=== PATIENT | female | born 1945 | race Caucasian/White ===

== ENCOUNTER → 2020-05-19 09:57 | Outpatient (BNVA) | payer MEDICARE, SELFPAY | PROVIDERS: PCP Internal Medicine; Visit Provider Nurse Practitioner Gerontology | CPT/HCPCS: Q3014 ==

== ENCOUNTER → 2020-11-18 12:57 | Outpatient (BNVA) | payer MEDICARE, SELFPAY | PROVIDERS: PCP Internal Medicine; Visit Provider Nurse Practitioner Gerontology | DX: E11.65 Type 2 diabetes mellitus with hyperglycemia (principal); E78.00 Pure hypercholesterolemia, unspecified; E55.9 Vitamin D deficiency, unspecified; Z79.4 Long term (current) use of insulin; Z87.39 Personal history of other diseases of the musculoskeletal system and connective tissue | CPT/HCPCS: 82947; 99212 ==

== ENCOUNTER 2020-12-13 10:59 | Outpatient (REF) | payer MEDICARE, SELFPAY ==
[2020-12-13 12:21] LABS: Alanine Aminotransferase 33 U/L (0-31); Albumin Level 4.1 g/dL (3.5-5.0); Alkaline Phosphatase 106 U/L (39-117); Anion Gap 17 (12-20); Aspartate Amino Transferase 36 U/L (5-31); Blood Urea Nitrogen 9 mg/dL (9-16); Calcium 9.9 mg/dL (8.4-10.2); Carbon Dioxide 24 mmol/L (22-29); Chloride 103 mmol/L (96-108); Cholesterol 167 mg/dL; Estimated Glomerular Filt Rate 59; Glucose Fasting 150 mg/dL (60-99); HDL Cholesterol 72 mg/dL; LDL Cholesterol Calculated 80 mg/dl; Potassium 4.3 mmol/L (3.3-5.1); Sodium 140 mmol/L (135-145); Total Protein 7.4 g/dL (6.5-8.0); Triglycerides 75 mg/dL
[2020-12-13 12:32] LABS: Microalbum/Creatinine Ratio Ur 9.7 ug/mg cr
[2020-12-13 12:42] LABS: Thyroid Stimulating Hormone 1.92 uIU/mL (0.32-4.0)
[2020-12-13 12:59] LABS: Vitamin D 25-OH Total 37.6 ng/mL (>30)
== END 2020-12-13 11:00 | disposition home or self-care (01) ==
LOC: HO.LAB 10:59
PROVIDERS: PCP Internal Medicine; Visit Provider Nurse Practitioner Gerontology
DX: E11.65 Type 2 diabetes mellitus with hyperglycemia (principal); E55.9 Vitamin D deficiency, unspecified; Z79.4 Long term (current) use of insulin
CPT/HCPCS: 36415; 80053; 80061; 82043; 82306; 84443

== ENCOUNTER → 2021-09-04 09:36 | Outpatient (BNVA) | payer MEDICARE, SELFPAY | PROVIDERS: PCP Internal Medicine; Visit Provider Nurse Practitioner Gerontology | DX: E11.65 Type 2 diabetes mellitus with hyperglycemia (principal); E78.00 Pure hypercholesterolemia, unspecified; Z79.4 Long term (current) use of insulin; Z87.39 Personal history of other diseases of the musculoskeletal system and connective tissue | CPT/HCPCS: 82947; 83036; 99212 ==

== ENCOUNTER 2023-03-20 09:19 | Outpatient (REF) | payer MEDICARE, SELFPAY ==
[2023-03-20 09:46] LABS: MANUAL DIFF FLAG NO
[2023-03-20 10:16] LABS: Basophils Percent Auto 0.4 % (0-2); Eosinophils Absolute Auto 0.2 X10*3/uL (0.0-0.4); Eosinophils Percent Auto 2.2 % (0-4); Hematocrit 43.5 % (37.0-47.0); Hemoglobin 14.6 g/dl (12.0-16.0); Imm Gran Abs Auto 0.01 X10*3/uL (0.00-0.03); Imm Gran Pct Auto 0.1 % (0.0-0.4); Lymphocytes Absolute Auto 3.1 X10*3/uL (1.2-4.9); Lymphocytes Percent Auto 42.5 % (20-40); Mean Corpuscular HGB Conc 33.6 g/dl (31.0-35.0); Mean Corpuscular Hemoglobin 31.1 pg (27.0-33.0); Mean Corpuscular Volume 92.6 fL (80.0-98.0); Mean Platelet Volume 9.6 fL (9.4-12.3); Monocytes Absolute Auto 0.4 X10*3/uL (0.1-1.2); Monocytes Percent Auto 4.7 % (2-11); Neutrophils Absolute Auto 3.7 x10*3/uL (2.0-8.3); Neutrophils Percent Auto 50.1 % (45-73); Platelet Count 244 X10*3/uL (160-400); White Blood Count 7.4 X10*3/uL (4.8-10.8)
[2023-03-20 10:20] LABS: Estimated Average Glucose 209 mg/dL; Hemoglobin A1c % 8.9 % (<6.0)
[2023-03-20 10:54] LABS: Alanine Aminotransferase 41 U/L (0-31); Alkaline Phosphatase 94 U/L (39-117); Anion Gap 16 (12-20); Aspartate Amino Transferase 47 U/L (5-31); Blood Urea Nitrogen 9 mg/dL (9-16); Calcium 10.2 mg/dL (8.4-10.2); Carbon Dioxide 25 mmol/L (22-29); Chloride 105 mmol/L (96-108); Cholesterol 155 mg/dL (<200); Estimated Glomerular Filt Rate > 60; Glucose Fasting 189 mg/dL (60-99); HDL Cholesterol 63 mg/dL (>40); LDL Cholesterol Calculated 74 mg/dL (<100); Potassium 3.7 mmol/L (3.3-5.1); Sodium 142 mmol/L (135-145); Total Protein 7.7 g/dL (6.5-8.0); Triglycerides 90 mg/dL (<150)
[2023-03-20 11:12] LABS: Thyroid Stimulating Hormone 2.63 uIU/mL (0.32-4.0)
[2023-03-20 11:15] LABS: Creatinine Urine 251.12 mg/dL; Microalbum/Creatinine Ratio Ur 22.3 ug/mg cr (<30)
== END 2023-03-20 09:20 | disposition home or self-care (01) ==
LOC: HO.LAB 09:19
PROVIDERS: PCP Internal Medicine; Visit Provider Internal Medicine
DX: E03.9 Hypothyroidism, unspecified (principal); E11.69 Type 2 diabetes mellitus with other specified complication; E66.01 Morbid (severe) obesity due to excess calories; E78.5 Hyperlipidemia, unspecified; E11.9 Type 2 diabetes mellitus without complications; I10 Essential (primary) hypertension; Z13.0 Encounter for screening for diseases of the blood and blood-forming organs and certain disorders involving the immune mechanism
CPT/HCPCS: 36415; 80053; 80061; 82043; 82570; 83036; 84443; 85025

== ENCOUNTER 2023-05-02 09:35 | Outpatient (AMB) | payer MEDICARE, SELFPAY ==
[2023-05-02 09:37] VITALS: BP 144/90; PULSE 93; O2SAT 94; BMI 27.7
--- NOTE | 2023-05-02 09:37 | A.OFFPC_ITS ---
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 Pharmacy Clerk: Not Required per policy Accompanied by: Self / Same As Patient Allergies Doxycycline Hyclate Allergy (Unknown, Verified 05/02/23 09:38) Rash Medication List - Last Reconciled 05/02/23 by Jerel Conley MD acetaminophen ER 500 mg PO Q12H atorvastatin 40 mg PO BEDTIME blood sugar diagnostic (FreeStyle Lite Strips) test blood sugar twice a day blood sugar diagnostic As directed cholecalciferol (vitamin D3) 25 mcg PO DAILY glipizide 5 mg PO BID insulin glargine U-300 conc (Toujeo SoloStar U-300 Insulin) 10 units (0.0333 mL) subcut DAILY ketorolac 0.5% 0 drps ophthalmic (eye) lancets As directed lorazepam 0.5 mg PO BID PRN pen needle, diabetic As directed Tobacco use date assessed: 05/02/23 Fall risk assessment: No Falls in past year Last assessed Fall Risk: 05/02/23 Dental Screening Dental Screen Date: 05/02/23 Did you have a dental visit in the last 12 months?: No Did you have a dental problem in the last 6 months where you did not have access to dental care?: No Was dental information given to patient?: Patient has dentist HPI PE - CMP and Microalbumin due HPI Details DM and hyperlipidemia; BS has been high; A1C 8.4 PFSH Medical History (Updated 05/02/23 @ 10:24 by Jerel Conley MD) Physical exam Hx of cataract Anxiety Hyperlipidemia associated with type 2 diabetes mellitus History of osteoporosis Vitamin D deficiency Type 2 diabetes mellitus with hyperglycemia, with long-term current use of insulin Elevated parathyroid hormone Hyperlipidemia Surgical History History of breast biopsy History of cholecystectomy Family History Father Pancreatic cancer Mother Stomach cancer Brother Alcoholism Son Diabetes Daughter Diabetes Mother Diabetes Social History Housing: House Alcohol intake: current Alcohol intake frequency: a few times a month Patient Tobacco Use Status: Never used Tobacco e-Cigarette/Vaping Use: Never Used Second Hand Smoke Exposure: No service: No Current occupational status: retired Cognitive needs: No Hearing needs: No Vision needs: Yes Questionnaire PHQ-9 Over the last 2 weeks, how often have you been bothered by any of the following problems? 1. Little interest or pleasure in doing things: several days 2. Feeling down, depressed, or hopeless: several days 3. Trouble falling or staying asleep, or sleeping too much: nearly every day 4. Feeling tired or having little energy: several days 5. Poor appetite or overeating: not at all 6. Feeling bad about yourself - or that you are a failure or have let yourself or your family down: several days 7. Trouble concentrating on things, such as reading the newspaper or watching television: not at all 8. Moving or speaking so slowly that other people could have noticed. Or the opposite - being so fidgety or restless that you have been moving around a lot more than usual: not at all 9. Thoughts that you would be better off or of hurting yourself in some way: not at all Total score: 7 Depression Screening Interpretation: Negative Depression Screening Done: Yes 36543 - PHQ-9 Billing: Yes Source: Developed by Drs. Edu Cannon, Radha Walton, Kofi Stanley and colleagues, with an educational george from [employer]. Thrive Questionnaire Date Thrive assessed: 05/02/23 I am a: Patient What is your living situation today?: I have a steady place to live Within the past 12 months, did the food you bought not last and you didn't have the money to get more?: Never true Within the past 12 months, did you worry whether your food would run out before you got money to buy more?: Never true Do you have trouble paying for medicines?: No Do you have trouble getting transportation to medical appointments?: No Do you have trouble paying your heating and electricity bill?: No Do you have trouble taking care of your child, family member or friend?: No Do you have trouble with day-to-day activities such as bathing, preparing meals, shopping, managing finances, etc.?: No Are you currently unemployed and looking for a job?: No Are you interested in more education?: No Please select the resources that you would like help with: None AUDIT C Alcohol Use Questionnaire (AUDIT-C) 1. How often do you have a drink containing alcohol?: Never Total Score: 0 Score Reviewed/Action Taken: Yes LURDES-7 AMB Questionnaire LURDES-7 Date LURDES - 7 assessed: 05/02/23 Feeling nervous, anxious, or on edge: 1 = Several days Not being able to stop or control worryin = Not at all Worrying too much about different things: 0 = Not at all Trouble relaxin = Several days Being so restless that it is hard to sit still: 0 = Not at all Becoming easily annoyed or irritable: 0 = Not at all Feeling afraid as if something awful might happen: 1 = Several days Total LURDES-7 score (0-4 normal; 5-9 mild; 10-14 moderate; 15-21 severe): 3 Source: Developed by Drs. Edu Cannon, Radha Walton, Kofi Stanley and colleagues, with an educational george from [employer]. LURDES-7 Assessment Billing LURDES-7 Assessment Tool: LURDES-7 Assessment 34564 Review of Systems Const Denies chills, Denies fatigue, Denies headache(s) and Denies weight loss Eyes Denies change in vision, Denies diplopia and Denies eye pain ENT Denies vertigo, Denies dizziness, Denies headache(s) and Denies nasal discharge Card Denies chest pain, Denies rapid heart rate and Denies dyspnea on exertion Resp Denies chest congestion, Denies cough, Denies pain with cough and Denies dyspnea on exertion GI Denies abdominal pain, Denies hematochezia and Denies change in bowel habits Musc Denies myalgias, Denies arthralgias and Denies joint swelling Skin/Breast Denies lesions and Denies unusual bruising Neuro Denies vertigo, Denies dizziness, Denies headache(s) and Denies focal weakness Endo Denies fatigue Physical exam (Primary Care) Vital Signs: Last Vital Signs Pulse 93 05/02/23 09:37 BP 144/90 H 05/02/23 09:37 Pulse Ox 94 05/02/23 09:37 Oxygen Delivery Method Room Air 05/02/23 09:37 BMI result Body Mass Index 27.7 Tobacco/Smoking Status: Tobacco use Status Tobacco use date assessed 05/02/23 05/02/23 09:39 Patient Tobacco Use Status Never used Tobacco 05/02/23 09:39 e-Cigarette/Vaping Use Never Used 05/02/23 09:39 PHQ-9: PHQ-9 Score PHQ-9: Total score 7 05/02/23 09:46 Depression Screening Interpretation: Negative Thrive Assessment: Date of Thrive Assessment Date Thrive assessed 05/02/23 05/02/23 09:39 Const General: cooperative, healthy appearing and no acute distress Orientation/consciousness: oriented to person, oriented to place and oriented to time HENMT Head: Yes normal to inspection, Yes normocephalic and Yes atraumatic Mouth: Normal oral and palatal mucosa present and tongue normal Throat: Yes posterior oropharynx normal and Yes uvula midline Eyes General: appearance normal, both eyes and all related structures Neck Neck: Yes normal visual inspection, Yes full ROM and Yes no lymphadenopathy Thyroid: Thyroid normal Carotids: normal carotid upstroke Chest Chest palpation & inspection: normal inspection of the chest Resp Effort & Inspection: normal respiratory effort and able to speak in complete sentences Auscultation: clear to auscultation bilaterally Cardio Jugular venous distension: no JVD Palpation: normal PMI Rate: regular rate Rhythm: regular rhythm Heart sounds: S1 normal heart sound present and S2 normal heart sound present GI Inspection: Yes normal to inspection Palpation (GI): Soft to palpation and No hepatosplenomegaly present Auscultation: normal bowel sounds General: Yes no CVA tenderness Back/Spine/Pelvis Back: no CVA tenderness Skin General skin exam: no rashes or lesions noted Neuro General: oriented to person, oriented to place and oriented to time Extrem General: Yes normal to inspection and Yes full ROM Assessment and Plan Assessment & Plan (1) Physical exam: Code(s): Z00.00 - Encounter for general adult medical examination without abnormal findings Plan: do labs (2) Type 2 diabetes mellitus with hyperglycemia, with long-term current use of insulin: Code(s): E11.65 - Type 2 diabetes mellitus with hyperglycemia; Z79.4 - prison (current) use of insulin Plan: increase rx (3) Hyperlipidemia: Code(s): E78.5 - Hyperlipidemia, unspecified Qualifiers: Hyperlipidemia type: pure hypercholesterolemia Qualified Code(s): E78.00 - Pure hypercholesterolemia, unspecified Plan: stable; same rx Orders: Orders Hemoglobin A1c Today R73.9 - Hyperglycemia, unspecified Microalbumin, Random (w Creat) Today E11.69 - Type 2 diabetes mellitus with other specified complication, E66.01 - Morbid (severe) obesity due to excess calories Lipid Panel Today E78.5 - Hyperlipidemia, unspecified Complete Blood Count Auto Diff Today D64.9 - Anemia, unspecified Comprehensive [place]. Panel Fast Today N28.9 - Disorder of kidney and ureter, unspecified Medications: Changed From insulin glargine U-300 conc (Toujeo SoloStar U-300 Insulin) 10 units (0.0333 mL) subcut DAILY 4.5 mL 8RF E11.65 - Type 2 diabetes mellitus with hyperglycemia, Z79.4 - prison (current) use of insulin To insulin glargine U-300 conc (Toujeo SoloStar U-300 Insulin) 12 units (0.04 mL) subcut DAILY 4.5 mL 8RF E11.65 - Type 2 diabetes mellitus with hyperglycemia, Z79.4 - prison (current) use of insulin Coding Level of Care Code Est Pt Prev Care >65y(62685) Diagnoses Physical exam Z00.00 Type 2 diabetes mellitus with hyperglycemia, with long-term current use of insulin E11.65; Z79.4 Pure hypercholesterolemia E78.00 Hyperlipidemia type: pure hypercholesterolemia Additional Codes LURDES-7 Assessment Billing - LURDES-7 Assessment Tool: LURDES-7 Assessment 29138 ([id number])
== END 2023-05-02 10:12 | disposition home or self-care (01) ==
PROVIDERS: Visit Provider Internal Medicine
DX: Z00.00 Encounter for general adult medical examination without abnormal findings (principal); E11.65 Type 2 diabetes mellitus with hyperglycemia; Z79.4 Long term (current) use of insulin; E78.00 Pure hypercholesterolemia, unspecified
CPT/HCPCS: 99397

== ENCOUNTER 2023-12-06 09:49 | Outpatient (AMB) | payer MEDICARE, SELFPAY ==
--- NOTE | 2023-12-06 09:56 | MHC.PC.OV ---
Vital Signs 12/06/23 09:59 Height 5 ft 0.5 in Weight 141 lb BMI 27.1 Blood Pressure Location Lt brachial Position Sitting Pulse Source Pulse Oximeter Oxygen Delivery Method Room Air Intake Visit Reasons: [place] [facility] RT cataract 12/23 Intake Note: Patient is here for a Pre-op for cataracts of [facility] right eye scheduled with Dr. Vu on 12/24/23. 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 Accompanied by: Self / Same As Patient Allergies Doxycycline Hyclate Allergy (Unknown, Verified 12/06/23 10:08) Rash Tobacco use date assessed: 12/06/23 Fall risk assessment: No Falls in past year Last assessed Fall Risk: 12/06/23 Dental Screening Dental Screen Date: 12/06/23 Did you have a dental visit in the last 12 months?: Yes Did you have a dental problem in the last 6 months where you did not have access to dental care?: No Was dental information given to patient?: Patient has dentist HPI [place] [facility] RT cataract 12/23 HPI Details having cataracts repaired; hyperlipidemia and diabetes; stable; no history of CAD [facility] Medical History (Updated 12/09/23 @ 12:47 by Jerel Conley MD) Physical exam Hx of cataract Anxiety Hyperlipidemia associated with type 2 diabetes mellitus History of osteoporosis Vitamin D deficiency Type 2 diabetes mellitus with hyperglycemia, with long-term current use of insulin Elevated parathyroid hormone Hyperlipidemia Surgical History History of breast biopsy History of cholecystectomy Family History Father Pancreatic cancer Mother Stomach cancer Brother Alcoholism Son Diabetes Daughter Diabetes Mother Diabetes Social History Housing: House Alcohol intake: current Alcohol intake frequency: a few times a month Patient Tobacco Use Status: Never used Tobacco e-Cigarette/Vaping Use: Never Used Second Hand Smoke Exposure: No service: No Current occupational status: retired Cognitive needs: No Hearing needs: No Vision needs: Yes Questionnaire PHQ-9 Over the last 2 weeks, how often have you been bothered by any of the following problems? 1. Little interest or pleasure in doing things: not at all 2. Feeling down, depressed, or hopeless: not at all 3. Trouble falling or staying asleep, or sleeping too much: not at all 4. Feeling tired or having little energy: not at all 5. Poor appetite or overeating: not at all 6. Feeling bad about yourself - or that you are a failure or have let yourself or your family down: not at all 7. Trouble concentrating on things, such as reading the newspaper or watching television: not at all 8. Moving or speaking so slowly that other people could have noticed. Or the opposite - being so fidgety or restless that you have been moving around a lot more than usual: not at all 9. Thoughts that you would be better off or of hurting yourself in some way: not at all Total score: 0 Depression Screening Interpretation: Negative Depression Screening Done: Yes 99382 - PHQ-9 Billing: Yes Source: Developed by Drs. Edu Cannon, Radha Walton, Kofi Stanley and colleagues, with an educational george from [employer]. Thrive Questionnaire Date Thrive assessed: 12/06/23 I am a: Patient What is your living situation today?: I have a steady place to live Within the past 12 months, did the food you bought not last and you didn't have the money to get more?: Never true Within the past 12 months, did you worry whether your food would run out before you got money to buy more?: Never true Do you have trouble paying for medicines?: No Do you have trouble getting transportation to medical appointments?: No Do you have trouble paying your heating and electricity bill?: No Do you have trouble taking care of your child, family member or friend?: No Do you have trouble with day-to-day activities such as bathing, preparing meals, shopping, managing finances, etc.?: No Are you currently unemployed and looking for a job?: No Are you interested in more education?: No Please select the resources that you would like help with: None Currently or been in a relationship where the following occur: No concerns reported THRIVE Score: 0 AUDIT C Alcohol Use Questionnaire (AUDIT-C) 1. How often do you have a drink containing alcohol?: Never 3. How often do you have six or more drinks on one occasion?: Never Total Score: 0 Score Reviewed/Action Taken: Yes LURDES-7 AMB Questionnaire LURDES-7 Date LURDES - 7 assessed: 12/06/23 Feeling nervous, anxious, or on edge: 0 = Not at all Not being able to stop or control worryin = Not at all Worrying too much about different things: 0 = Not at all Trouble relaxin = Not at all Being so restless that it is hard to sit still: 0 = Not at all Becoming easily annoyed or irritable: 0 = Not at all Feeling afraid as if something awful might happen: 0 = Not at all Total LURDES-7 score (0-4 normal; 5-9 mild; 10-14 moderate; 15-21 severe): 0 Source: Developed by Drs. Edu Cannon, Radha Walton, Kofi Stanley and colleagues, with an educational george from [employer]. LURDES-7 Assessment Billing LURDES-7 Assessment Tool: LURDES-7 Assessment 90490 Review of Systems Const Denies chills, Denies fatigue, Denies headache(s) and Denies weight loss Eyes Denies change in vision, Denies diplopia and Denies eye pain ENT Denies vertigo, Denies dizziness, Denies headache(s) and Denies nasal discharge Card Denies chest pain, Denies rapid heart rate and Denies dyspnea on exertion Resp Denies chest congestion, Denies cough, Denies pain with cough and Denies dyspnea on exertion GI Denies abdominal pain, Denies hematochezia and Denies change in bowel habits Musc Denies myalgias, Denies arthralgias and Denies joint swelling Skin/Breast Denies lesions and Denies unusual bruising Neuro Denies vertigo, Denies dizziness, Denies headache(s) and Denies focal weakness Endo Denies fatigue Physical exam (Primary Care) Vital Signs: Oxygen Delivery Method Room Air 12/06/23 09:59 BMI result Body Mass Index 27.1 Tobacco/Smoking Status: Tobacco use Status Tobacco use date assessed 12/06/23 12/06/23 10:07 Patient Tobacco Use Status Never used Tobacco 12/06/23 09:57 e-Cigarette/Vaping Use Never Used 12/06/23 09:57 PHQ-9: PHQ-9 Score PHQ-9: Total score 0 12/06/23 10:08 Depression Screening Interpretation: Negative Thrive Assessment: Date of Thrive Assessment Date Thrive assessed 12/06/23 12/06/23 10:07 Currently or been in a relationship where the following occur: No concerns reported Const General: cooperative, healthy appearing and no acute distress Orientation/consciousness: oriented to person, oriented to place and oriented to time HENMT Head: Yes normal to inspection, Yes normocephalic and Yes atraumatic Mouth: Normal oral and palatal mucosa present and tongue normal Throat: Yes posterior oropharynx normal and Yes uvula midline Eyes General: appearance normal, both eyes and all related structures Neck Neck: Yes normal visual inspection, Yes full ROM and Yes no lymphadenopathy Thyroid: Thyroid normal Carotids: normal carotid upstroke Chest Chest palpation & inspection: normal inspection of the chest Resp Effort & Inspection: normal respiratory effort and able to speak in complete sentences Auscultation: clear to auscultation bilaterally Cardio Jugular venous distension: no JVD Palpation: normal PMI Rate: regular rate Rhythm: regular rhythm Heart sounds: S1 normal heart sound present and S2 normal heart sound present GI Inspection: Yes normal to inspection Palpation (GI): Soft to palpation and No hepatosplenomegaly present Auscultation: normal bowel sounds General: Yes no CVA tenderness Back/Spine/Pelvis Back: no CVA tenderness Skin General skin exam: no rashes or lesions noted Neuro General: oriented to person, oriented to place and oriented to time Extrem General: Yes normal to inspection and Yes full ROM Results AMB Hemoglobin A1c AMB Hemoglobin A1c 8.8 % Last Edit by ZANDRA Saeed on 12/06/23 10:08 Results Reviewed Results Reviewed: Laboratory Last Values Hgb A1c (Clinic) 8.8 % (4.0-6.0) H 12/06/23 09:52 Assessment and Plan Assessment & Plan (1) Preop exam for internal medicine: Code(s): Z01.818 - Encounter for other preprocedural examination Plan: Low risk of cardiovascular complications; cleared for surgery (2) Hyperlipidemia associated with type 2 diabetes mellitus: Code(s): E11.69 - Type 2 diabetes mellitus with other specified complication; E78.5 - Hyperlipidemia, unspecified Plan: stable; same rx (3) Hyperlipidemia: Code(s): E78.5 - Hyperlipidemia, unspecified Plan: stable; same rx Orders: Orders AMB Hemoglobin A1c 12/06/23 E11.65 - Type 2 diabetes mellitus with hyperglycemia, Z79.4 - termite renewal inspector (current) use of insulin Coding Level of Care Code Est Pt Level 4 (20744) Diagnoses Preop exam for internal medicine Z01.818 Hyperlipidemia associated with type 2 diabetes mellitus E11.69; E78.5 Hyperlipidemia E78.5 Additional Codes LURDES-7 Assessment Billing - LURDES-7 Assessment Tool: LURDES-7 Assessment [id number] ([id number])
[2023-12-06 09:59] VITALS: BMI 27.1
== END 2023-12-06 10:20 | disposition home or self-care (01) ==
PROVIDERS: PCP Internal Medicine; Visit Provider Internal Medicine
DX: E11.65 Type 2 diabetes mellitus with hyperglycemia (principal); Z79.4 Long term (current) use of insulin
CPT/HCPCS: 83036; 99214

== ENCOUNTER 2024-04-27 09:21 | Outpatient (REF) | payer MEDICARE, SELFPAY ==
[2024-04-27 09:45] LABS: MANUAL DIFF FLAG NO
[2024-04-27 10:47] LABS: Basophils Absolute Auto 0.1 X10*3/uL (0.0-0.2); Basophils Percent Auto 0.8 % (0-2); Eosinophils Absolute Auto 0.4 X10*3/uL (0.0-0.4); Eosinophils Percent Auto 4.6 % (0-4); Hematocrit 46.3 % (37.0-47.0); Hemoglobin 15.1 g/dl (12.0-16.0); Imm Gran Abs Auto 0.02 X10*3/uL (0.00-0.03); Imm Gran Pct Auto 0.3 % (0.0-0.4); Lymphocytes Absolute Auto 3.9 X10*3/uL (1.2-4.9); Lymphocytes Percent Auto 48.4 % (20-40); Mean Corpuscular HGB Conc 32.6 g/dl (31.0-35.0); Mean Corpuscular Hemoglobin 31.3 pg (27.0-33.0); Mean Corpuscular Volume 96.1 fL (80.0-98.0); Mean Platelet Volume 9.8 fL (9.4-12.3); Monocytes Absolute Auto 0.4 X10*3/uL (0.1-1.2); Neutrophils Absolute Auto 3.3 x10*3/uL (2.0-8.3); Neutrophils Percent Auto 40.9 % (45-73); Platelet Count 267 X10*3/uL (160-400); Red Blood Count 4.82 X10*6/uL (4.20-5.50); Red Cell Distribution Width 12.7 % (11.0-16.0)
[2024-04-27 11:10] LABS: Estimated Average Glucose 189 mg/dL; Hemoglobin A1C 256.5148 umol/L; Hemoglobin A1c % 8.2 % (<6.0); Total Hemoglobin (HGBA1C) 3855.6558 umol/L
[2024-04-27 11:40] LABS: Alanine Aminotransferase 23 U/L (0-31); Albumin Level 4.1 g/dL (3.5-5.0); Alkaline Phosphatase 86 U/L (39-117); Anion Gap 14 (12-20); Aspartate Amino Transferase 31 U/L (5-31); Bilirubin Total 0.8 mg/dL (0.0-1.0); Blood Urea Nitrogen 7 mg/dL (9-16); Calcium 10.3 mg/dL (8.4-10.2); Carbon Dioxide 29 mmol/L (22-29); Chloride 105 mmol/L (96-108); Cholesterol 160 mg/dL (<200); Estimated Glomerular Filt Rate 60; Glucose Fasting 126 mg/dL (60-99); HDL Cholesterol 69 mg/dL (>40); LDL Cholesterol Calculated 68 mg/dL (<100); Potassium 4.4 mmol/L (3.3-5.1); Sodium 144 mmol/L (135-145); Total Protein 7.6 g/dL (6.5-8.0); Triglycerides 116 mg/dL (<150)
[2024-04-27 11:56] LABS: Creatinine Urine 211.49 mg/dL; Microalbum/Creatinine Ratio Ur 13.7 ug/mg cr (<30)
== END 2024-04-27 09:22 | disposition home or self-care (01) ==
LOC: HO.LAB 09:21
PROVIDERS: PCP Internal Medicine; Visit Provider Internal Medicine
DX: E11.69 Type 2 diabetes mellitus with other specified complication (principal); E66.01 Morbid (severe) obesity due to excess calories; E78.5 Hyperlipidemia, unspecified; N28.9 Disorder of kidney and ureter, unspecified; D64.9 Anemia, unspecified
CPT/HCPCS: 36415; 80053; 80061; 82043; 82570; 83036; 85025

== ENCOUNTER 2024-05-12 10:57 | Outpatient (AMB) | payer MEDICARE, SELFPAY ==
[2024-05-12 11:03] VITALS: BP 132/78; PULSE 92; O2SAT 95; BMI 26.9
--- NOTE | 2024-05-12 11:03 | MHC.PC.OV ---
Vital Signs 05/12/24 11:03 Height 5 ft 0.5 in Weight 140 lb BMI 26.9 BP 132/78 Blood Pressure Location Lt brachial Position Sitting Pulse 92 Pulse Source Pulse Oximeter Pulse Oximetry (%) 95 Oxygen Delivery Method Room Air Intake Visit Reasons: annual exam Shirt Marker Required: No Accompanied by: Self / Same As Patient Allergies Doxycycline Hyclate Allergy (Unknown, Verified 05/12/24 11:03) Rash Medication List - Last Reconciled 05/12/24 by Jerel Conley MD acetaminophen ER 500 mg PO Q12H atorvastatin 40 mg PO BEDTIME blood sugar diagnostic (FreeStyle Lite Strips) test blood sugar twice a day blood sugar diagnostic As directed cholecalciferol (vitamin D3) 25 mcg PO DAILY glipizide 5 mg PO BID insulin glargine U-300 conc (Toujeo SoloStar U-300 Insulin) 12 units (0.04 mL) subcut DAILY ketorolac 0.5% 0 drps ophthalmic (eye) lancets As directed lorazepam 0.5 mg PO BID PRN pen needle, diabetic As directed Tobacco use date assessed: 05/12/24 Fall risk assessment: No Falls in past year Last assessed Fall Risk: 05/12/24 Dental Screening Dental Screen Date: 12/06/23 HPI annual exam HPI Details diabetes and hyperlipidemia; doing well; dietary indiscretion over the holidays [facility] Medical History (Updated 12/09/23 @ 12:47 by Jerel Conley MD) Physical exam Hx of cataract Anxiety Hyperlipidemia associated with type 2 diabetes mellitus History of osteoporosis Vitamin D deficiency Type 2 diabetes mellitus with hyperglycemia, with long-term current use of insulin Elevated parathyroid hormone Hyperlipidemia Surgical History History of breast biopsy History of cholecystectomy Family History Father Pancreatic cancer Mother Stomach cancer Brother Alcoholism Son Diabetes Daughter Diabetes Mother Diabetes Social History Housing: House Alcohol intake: current Alcohol intake frequency: a few times a month Patient Tobacco Use Status: Never used Tobacco Tobacco use type: Cigarette e-Cigarette/Vaping Use: Never Used Second Hand Smoke Exposure: No service: No Current occupational status: retired Cognitive needs: No Hearing needs: No Vision needs: Yes Questionnaire PHQ-9 Over the last 2 weeks, how often have you been bothered by any of the following problems? 1. Little interest or pleasure in doing things: not at all 2. Feeling down, depressed, or hopeless: several days 3. Trouble falling or staying asleep, or sleeping too much: more than half the days 4. Feeling tired or having little energy: more than half the days 5. Poor appetite or overeating: more than half the days 6. Feeling bad about yourself - or that you are a failure or have let yourself or your family down: more than half the days 7. Trouble concentrating on things, such as reading the newspaper or watching television: more than half the days 8. Moving or speaking so slowly that other people could have noticed. Or the opposite - being so fidgety or restless that you have been moving around a lot more than usual: more than half the days 9. Thoughts that you would be better off or of hurting yourself in some way: more than half the days Total score: 15 Depression Screening Interpretation: Negative Depression Screening Done: Yes 50248 - PHQ-9 Billing: Yes Source: Developed by Drs. Edu Cannon, Radha Walton, Kofi Stanley and colleagues, with an educational george from [employer]. Thrive Questionnaire Date Thrive assessed: 05/12/24 I am a: Patient What is your living situation today?: I have a steady place to live Within the past 12 months, did the food you bought not last and you didn't have the money to get more?: Never true Within the past 12 months, did you worry whether your food would run out before you got money to buy more?: Never true Do you have trouble paying for medicines?: I choose not to answer this question Do you have trouble getting transportation to medical appointments?: I choose not to answer this question Do you have trouble paying your heating and electricity bill?: I choose not to answer this question Do you have trouble taking care of your child, family member or friend?: I choose not to answer this question Do you have trouble with day-to-day activities such as bathing, preparing meals, shopping, managing finances, etc.?: I choose not to answer this question Are you currently unemployed and looking for a job?: I choose not to answer this question Are you interested in more education?: No Please select the resources that you would like help with: None Currently or been in a relationship where the following occur: I choose not to answer THRIVE Score: 0 AUDIT C Alcohol Use Questionnaire (AUDIT-C) 1. How often do you have a drink containing alcohol?: Never Total Score: 0 LURDES-7 AMB Questionnaire LURDES-7 Date LURDES - 7 assessed: 05/12/24 Feeling nervous, anxious, or on edge: 0 = Not at all Not being able to stop or control worryin = Not at all Worrying too much about different things: 0 = Not at all Trouble relaxin = More than half the days Being so restless that it is hard to sit still: 2 = More than half the days Becoming easily annoyed or irritable: 2 = More than half the days Feeling afraid as if something awful might happen: 2 = More than half the days Total LURDES-7 score (0-4 normal; 5-9 mild; 10-14 moderate; 15-21 severe): 8 Source: Developed by Drs. Edu Cannon, Radha Walton, Kofi Stanley and colleagues, with an educational george from [employer]. LURDES-7 Assessment Billing LURDES-7 Assessment Tool: LURDES-7 Assessment 18983 Review of Systems Const Denies chills, Denies fatigue, Denies headache(s) and Denies weight loss Eyes Denies change in vision, Denies diplopia and Denies eye pain ENT Denies vertigo, Denies dizziness, Denies headache(s) and Denies nasal discharge Card Denies chest pain, Denies rapid heart rate and Denies dyspnea on exertion Resp Denies chest congestion, Denies cough, Denies pain with cough and Denies dyspnea on exertion GI Denies abdominal pain, Denies hematochezia and Denies change in bowel habits Musc Denies myalgias, Denies arthralgias and Denies joint swelling Skin/Breast Denies lesions and Denies unusual bruising Neuro Denies vertigo, Denies dizziness, Denies headache(s) and Denies focal weakness Endo Denies fatigue Physical exam (Primary Care) Vital Signs: Last Vital Signs Pulse 92 05/12/24 11:03 BP 132/78 05/12/24 11:03 Pulse Ox 95 05/12/24 11:03 Oxygen Delivery Method Room Air 05/12/24 11:03 BMI result Body Mass Index 26.9 Tobacco/Smoking Status: Tobacco use Status Tobacco use date assessed 05/12/24 05/12/24 11:07 Patient Tobacco Use Status Never used Tobacco 05/12/24 11:07 Tobacco use type Cigarette 05/12/24 11:07 e-Cigarette/Vaping Use Never Used 05/12/24 11:07 PHQ-9: PHQ-9 Score PHQ-9: Total score 15 05/12/24 11:07 Depression Screening Interpretation: Negative Thrive Assessment: Date of Thrive Assessment Date Thrive assessed 05/12/24 05/12/24 11:07 Currently or been in a relationship where the following occur: I choose not to answer Const General: cooperative, healthy appearing and no acute distress Orientation/consciousness: oriented to person, oriented to place and oriented to time HENMT Head: Yes normal to inspection, Yes normocephalic and Yes atraumatic Mouth: Normal oral and palatal mucosa present and tongue normal Throat: Yes posterior oropharynx normal and Yes uvula midline Eyes General: appearance normal, both eyes and all related structures Neck Neck: Yes normal visual inspection, Yes full ROM and Yes no lymphadenopathy Thyroid: Thyroid normal Carotids: normal carotid upstroke Chest Chest palpation & inspection: normal inspection of the chest Resp Effort & Inspection: normal respiratory effort and able to speak in complete sentences Auscultation: clear to auscultation bilaterally Cardio Jugular venous distension: no JVD Palpation: normal PMI Rate: regular rate Rhythm: regular rhythm Heart sounds: S1 normal heart sound present and S2 normal heart sound present GI Inspection: Yes normal to inspection Palpation (GI): Soft to palpation and No hepatosplenomegaly present Auscultation: normal bowel sounds General: Yes no CVA tenderness Back/Spine/Pelvis Back: no CVA tenderness Skin General skin exam: no rashes or lesions noted Neuro General: oriented to person, oriented to place and oriented to time Extrem General: Yes normal to inspection and Yes full ROM Coding Level of Care Code Est Pt Prev Care >65y(90598) Diagnoses Physical exam Z00.00 Hyperlipidemia E78.5 Type 2 diabetes mellitus with hyperglycemia, with long-term current use of insulin E11.65; Z79.4 Additional Codes PHQ-9 - 38186 - PHQ-9 Billing: Yes ([id number]) LURDES-7 Assessment Billing - LURDES-7 Assessment Tool: LURDES-7 Assessment 30530 ([id number]) Assessment & Plan Assessment & Plan (1) Physical exam: Code(s): Z00.00 - Encounter for general adult medical examination without abnormal findings Category: Medical Plan: stable; do labs (2) Hyperlipidemia: Code(s): E78.5 - Hyperlipidemia, unspecified Category: Medical Plan: stable; same rx (3) Type 2 diabetes mellitus with hyperglycemia, with long-term current use of insulin: Code(s): E11.65 - Type 2 diabetes mellitus with hyperglycemia; Z79.4 - manager intermediate (current) use of insulin Category: Medical Plan: stable; same rx Orders: Orders Complete Blood Count Auto Diff Today Z13.0 - Encounter for screening for diseases of the blood and blood-forming organs and certain disorders involving the immune mechanism Comprehensive [place]. Panel Fast Today Z13.9 - Encounter for screening, unspecified Thyroid Stimulating Hormone Today Z13.29 - Encounter for screening for other suspected endocrine disorder Lipid Panel Today Z13.220 - Encounter for screening for lipoid disorders Hemoglobin A1c Today R73.9 - Hyperglycemia, unspecified
== END 2024-05-12 11:22 | disposition home or self-care (01) ==
PROVIDERS: PCP Internal Medicine; Visit Provider Internal Medicine
DX: Z00.00 Encounter for general adult medical examination without abnormal findings (principal); E78.5 Hyperlipidemia, unspecified; E11.65 Type 2 diabetes mellitus with hyperglycemia; Z79.4 Long term (current) use of insulin

== ENCOUNTER → 2024-05-12 10:57 | Outpatient (BNVA) | payer MEDICARE, SELFPAY | PROVIDERS: PCP Internal Medicine; Visit Provider Internal Medicine | DX: Z00.00 Encounter for general adult medical examination without abnormal findings (principal); E11.65 Type 2 diabetes mellitus with hyperglycemia; E78.5 Hyperlipidemia, unspecified; Z79.4 Long term (current) use of insulin | CPT/HCPCS: 96127; 99397 ==

== ENCOUNTER 2024-08-04 08:52 | Outpatient (REF) | payer MEDICARE, SELFPAY ==
[2024-08-04 09:15] LABS: MANUAL DIFF FLAG NO
[2024-08-04 09:42] LABS: Basophils Percent Auto 0.4 % (0-2); Eosinophils Absolute Auto 0.2 X10*3/uL (0.0-0.4); Eosinophils Percent Auto 2.5 % (0-4); Hematocrit 43.4 % (37.0-47.0); Hemoglobin 14.2 g/dl (12.0-16.0); Imm Gran Abs Auto 0.03 X10*3/uL (0.00-0.03); Imm Gran Pct Auto 0.3 % (0.0-0.4); Lymphocytes Absolute Auto 4.2 X10*3/uL (1.2-4.9); Mean Corpuscular HGB Conc 32.7 g/dl (31.0-35.0); Mean Corpuscular Hemoglobin 30.8 pg (27.0-33.0); Mean Corpuscular Volume 94.1 fL (80.0-98.0); Mean Platelet Volume 9.5 fL (9.4-12.3); Monocytes Absolute Auto 0.5 X10*3/uL (0.1-1.2); Monocytes Percent Auto 5.2 % (2-11); Neutrophils Absolute Auto 4.4 x10*3/uL (2.0-8.3); Neutrophils Percent Auto 46.6 % (45-73); Platelet Count 231 X10*3/uL (160-400); Red Blood Count 4.61 X10*6/uL (4.20-5.50); Red Cell Distribution Width 12.5 % (11.0-16.0); White Blood Count 9.4 X10*3/uL (4.8-10.8)
[2024-08-04 09:49] LABS: Estimated Average Glucose 183 mg/dL
[2024-08-04 10:25] LABS: Alanine Aminotransferase 18 U/L (0-31); Albumin Level 3.9 g/dL (3.5-5.0); Alkaline Phosphatase 80 U/L (39-117); Anion Gap 11 (12-20); Aspartate Amino Transferase 27 U/L (5-31); Bilirubin Total 1.1 mg/dL (0.0-1.0); Blood Urea Nitrogen 9 mg/dL (9-16); Calcium 9.8 mg/dL (8.4-10.2); Carbon Dioxide 27 mmol/L (22-29); Chloride 108 mmol/L (96-108); Cholesterol 150 mg/dL (<200); Estimated Glomerular Filt Rate > 60; Glucose Fasting 162 mg/dL (60-99); HDL Cholesterol 67 mg/dL (>40); LDL Cholesterol Calculated 61 mg/dL (<100); Potassium 3.9 mmol/L (3.3-5.1); Sodium 142 mmol/L (135-145); Total Protein 7.7 g/dL (6.5-8.0); Triglycerides 110 mg/dL (<150)
[2024-08-04 10:41] LABS: Thyroid Stimulating Hormone 3.72 uIU/mL (0.32-4.0)
== END 2024-08-04 08:53 | disposition home or self-care (01) ==
LOC: HO.LAB 08:52
PROVIDERS: PCP Internal Medicine; Visit Provider Internal Medicine
DX: Z13.0 Encounter for screening for diseases of the blood and blood-forming organs and certain disorders involving the immune mechanism (principal); Z13.220 Encounter for screening for lipoid disorders; Z13.29 Encounter for screening for other suspected endocrine disorder; R73.9 Hyperglycemia, unspecified; Z13.6 Encounter for screening for cardiovascular disorders
CPT/HCPCS: 36415; 80053; 80061; 83036; 84443; 85025

== ENCOUNTER 2024-08-10 10:52 | Outpatient (AMB) | payer MEDICARE, SELFPAY ==
[2024-08-10 10:55] VITALS: BP 158/90; PULSE 87; O2SAT 96; BMI 27.3
--- NOTE | 2024-08-10 10:55 | A.OFFPC_ITS ---
Vital Signs 08/10/24 10:55 Height 5 ft 0.5 in Weight 142 lb BMI 27.3 BP 158/90 H Blood Pressure Location Lt brachial Position Sitting Pulse 87 Pulse Source Pulse Oximeter Pulse Oximetry (%) 96 Oxygen Delivery Method Room Air Intake Visit Reasons: 3mth f/u - see comments Allergies Doxycycline Hyclate Allergy (Unknown, Verified 08/10/24 10:56) Rash Medication List - Last Reconciled 08/10/24 by Jerel Conley MD acetaminophen ER 500 mg PO Q12H atorvastatin 40 mg PO BEDTIME blood sugar diagnostic As directed blood sugar diagnostic (FreeStyle Lite Strips) test blood sugar twice a day cholecalciferol (vitamin D3) 25 mcg PO DAILY glipizide 5 mg PO BID insulin glargine U-300 conc (Toujeo SoloStar U-300 Insulin) 12 units (0.04 mL) subcut DAILY ketorolac 0.5% 0 drps ophthalmic (eye) lancets As directed lorazepam 0.5 mg PO BID PRN pen needle, diabetic As directed Tobacco use date assessed: 08/10/24 Fall risk assessment: No Falls in past year Last assessed Fall Risk: 08/10/24 Dental Screening Dental Screen Date: 08/10/24 Did you have a dental visit in the last 12 months?: No Did you have a dental problem in the last 6 months where you did not have access to dental care?: No Was dental information given to patient?: Patient has dentist HPI 3mth f/u - see comments HPI Details DM and hyperlipidemia on rx; doing well; compliant [facility] Medical History (Updated 12/09/23 @ 12:47 by Jerel Conley MD) Physical exam Hx of cataract Anxiety Hyperlipidemia associated with type 2 diabetes mellitus History of osteoporosis Vitamin D deficiency Type 2 diabetes mellitus with hyperglycemia, with long-term current use of insulin Elevated parathyroid hormone Hyperlipidemia Surgical History History of breast biopsy History of cholecystectomy Family History Father Pancreatic cancer Mother Stomach cancer Brother Alcoholism Son Diabetes Daughter Diabetes Mother Diabetes Social History Housing: House Alcohol intake: current Alcohol intake frequency: a few times a month Patient Tobacco Use Status: Never used Tobacco Tobacco use type: Cigarette e-Cigarette/Vaping Use: Never Used Second Hand Smoke Exposure: No service: No Current occupational status: retired Cognitive needs: No Hearing needs: No Vision needs: Yes Questionnaire PHQ-9 Over the last 2 weeks, how often have you been bothered by any of the following problems? 1. Little interest or pleasure in doing things: not at all 2. Feeling down, depressed, or hopeless: several days 3. Trouble falling or staying asleep, or sleeping too much: more than half the days 4. Feeling tired or having little energy: more than half the days 5. Poor appetite or overeating: more than half the days 6. Feeling bad about yourself - or that you are a failure or have let yourself or your family down: more than half the days 7. Trouble concentrating on things, such as reading the newspaper or watching television: more than half the days 8. Moving or speaking so slowly that other people could have noticed. Or the op posite - being so fidgety or restless that you have been moving around a lot more than usual: more than half the days 9. Thoughts that you would be better off or of hurting yourself in some way: more than half the days Total score: 15 Depression Screening Interpretation: Negative Depression Screening Done: Yes 88615 - PHQ-9 Billing: Yes Source: Developed by Drs. Edu Cannon, Radha Walton, Kofi Stanley and colleagues, with an educational george from [employer]. Thrive Questionnaire Date Thrive assessed: 08/10/24 I am a: Patient What is your living situation today?: I have a steady place to live Within the past 12 months, did the food you bought not last and you didn't have the money to get more?: Never true Within the past 12 months, did you worry whether your food would run out before you got money to buy more?: Never true Do you have trouble paying for medicines?: I choose not to answer this question Do you have trouble getting transportation to medical appointments?: I choose not to answer this question Do you have trouble paying your heating and electricity bill?: I choose not to answer this question Do you have trouble taking care of your child, family member or friend?: I choose not to answer this question Do you have trouble with day-to-day activities such as bathing, preparing meals, shopping, managing finances, etc.?: I choose not to answer this question Are you currently unemployed and looking for a job?: I choose not to answer this question Are you interested in more education?: No Please select the resources that you would like help with: None Currently or been in a relationship where the following occur: I choose not to answer THRIVE Score: 0 AUDIT C Alcohol Use Questionnaire (AUDIT-C) 1. How often do you have a drink containing alcohol?: Never Total Score: 0 LURDES-7 AMB Questionnaire LURDES-7 Date LURDES - 7 assessed: 08/10/24 Feeling nervous, anxious, or on edge: 0 = Not at all Not being able to stop or control worryin = Not at all Worrying too much about different things: 0 = Not at all Trouble relaxin = More than half the days Being so restless that it is hard to sit still: 2 = More than half the days Becoming easily annoyed or irritable: 2 = More than half the days Feeling afraid as if something awful might happen: 2 = More than half the days Total LURDES-7 score (0-4 normal; 5-9 mild; 10-14 moderate; 15-21 severe): 8 Source: Developed by Drs. Edu Cannon, Radha Walton, Kofi Stanley and colleagues, with an educational george from [employer]. LURDES-7 Assessment Billing LURDES-7 Assessment Tool: LURDES-7 Assessment 56421 Review of Systems Const Denies chills, Denies headache(s) and Denies weight loss ENT Denies headache(s) Card Denies chest pain, Denies syncope, Denies irregular heart rhythm and Denies dyspnea Resp Denies chest congestion, Denies cough and Denies dyspnea GI Denies abdominal pain, Denies change in stool character, Denies nausea and Denies vomiting Musc Denies deformity and Denies joint swelling Neuro Denies syncope and Denies headache(s) Physical exam (Primary Care) Vital Signs: Last Vital Signs Pulse 87 08/10/24 10:55 BP 158/90 H 08/10/24 10:55 Pulse Ox 96 08/10/24 10:55 Oxygen Delivery Method Room Air 08/10/24 10:55 BMI result Body Mass Index 27.3 Tobacco/Smoking Status: Tobacco use Status Tobacco use date assessed 08/10/24 08/10/24 11:01 Patient Tobacco Use Status Never used Tobacco 08/10/24 11:01 Tobacco use type Cigarette 08/10/24 11:01 e-Cigarette/Vaping Use Never Used 08/10/24 11:01 PHQ-9: PHQ-9 Score PHQ-9: Total score 15 08/10/24 11:01 Depression Screening Interpretation: Negative Thrive Assessment: Date of Thrive Assessment Date Thrive assessed 08/10/24 08/10/24 11:01 Currently or been in a relationship where the following occur: I choose not to answer Const General: cooperative, comfortable, no acute distress and alert Neck Neck: Yes no lymphadenopathy Thyroid: Thyroid normal Resp Effort & Inspection: normal respiratory effort Auscultation: clear to auscultation bilaterally Percussion: percussion normal Cardio Jugular venous distension: no JVD Palpation: normal PMI Rate: regular rate Rhythm: regular rhythm Heart sounds: S1 normal heart sound present and S2 normal heart sound present GI Inspection: Yes normal to inspection Palpation (GI): No hepatosplenomegaly present Skin General skin exam: no rashes or lesions noted Extrem General: Yes no clubbing, cyanosis or edema Coding Level of Care Code Est Pt Level 3 (85207) Diagnoses Hyperlipidemia associated with type 2 diabetes mellitus E11.69; E78.5 Additional Codes LURDES-7 Assessment Billing - LURDES-7 Assessment Tool: LURDES-7 Assessment 40992 ([id number]) PHQ-9 - 05966 - PHQ-9 Billing: Yes ([id number]) Assessment & Plan Assessment & Plan (1) Hyperlipidemia associated with type 2 diabetes mellitus: Code(s): E11.69 - Type 2 diabetes mellitus with other specified complication; E78.5 - Hyperlipidemia, unspecified Category: Medical Plan: stable; same rx
== END 2024-08-10 11:12 | disposition home or self-care (01) ==
PROVIDERS: PCP Internal Medicine; Visit Provider Internal Medicine
DX: E11.69 Type 2 diabetes mellitus with other specified complication (principal); E78.5 Hyperlipidemia, unspecified

== ENCOUNTER → 2024-08-10 10:52 | Outpatient (BNVA) | payer MEDICARE, SELFPAY | PROVIDERS: PCP Internal Medicine; Visit Provider Internal Medicine | DX: E11.69 Type 2 diabetes mellitus with other specified complication (principal); E78.5 Hyperlipidemia, unspecified | CPT/HCPCS: 96127; 99212 ==

== ENCOUNTER 2024-10-12 13:15 | Outpatient (AMB) | payer MEDICARE, SELFPAY ==
--- NOTE | 2024-10-12 13:57 | AM.OFFWIN_ITS ---
Intake Vital Signs 10/12/24 14:04 Weight 143 lb 2 oz BP 130/80 Blood Pressure Location Lt brachial Position Sitting Pulse 99 Pulse Source Pulse Oximeter Temp 97.6 F Temp Source Oral Pulse Oximetry (%) 96 Oxygen Delivery Method Room Air Intake Visit Reasons: EP cough, congestion 10 days recently on meds Intake Note: Patient here for cough and congestion that has been present for 10 days. She states she recently went to urgent care and was put on 5 different meds. Patient Tobacco Use Status: Never used Tobacco Allergies Doxycycline Hyclate Allergy (Unknown, Verified 10/12/24 14:09) Rash HPI HPI Comments History of Present Illness Details History - The patient is an 79-year-old female w ith past med hx of asthma, T2DM and HLD presenting with difficulty breathing and a persistent cough and fatigue. - She reports that her symptoms began al most two weeks ago and have progressively worsened, impacting her quality of life. - Despite using prescribed asthma medica tions, including nebulizer treatments and an albuterol inhaler, the patient experiences ongoing severe shortness of breath and wheezing. - Prior treatments included on 10/01, she was prescribed (by another urgent care) a course of steroids (prednisone 20mg x5d) and antibiotics (Z-Олег), tesselon pearles, albuterol nebs and albuterol inhaler reported as mostly ineffective, leading to the current evaluation. She has been using the nebs once daily. - She experiences aggravated sinus conge stion and coughing and reports past allergies that might contribute to her upper respiratory symptoms. - Denies fever but describes severity dominguez fficient to request further evaluation for possible serious respiratory illness. - Reports sinus pain and some head conge stion but denies ear pain. Physical Exam General: Cooperative, healthy appearing, comfortable and no acute distress Orientation/consciousness: Patient oriented x3 Limitations: No limitations Head: Normal to inspection Ears: Hearing grossly normal bilaterally, external ears normal and TM's normal bilaterally Nose: Normal external nose present, Normal nares present and No nasal discharge present Face and sinus: Normal facial exam and Yes sinuses nontender Mouth: Normal oral and palatal mucosa present and moist mucous membranes Throat: Yes tonsils normal, Yes uvula midline. Posterior oropharynx erythema Eyes: Appearance normal, both eyes and all related structures Neck: Normal visual inspection Respiratory: slight exp wheeze, rhonchi noted. Normal respiratory effort, able to speak in complete sentences, Actively coughing, no respiratory distress, not tachypneic, no tripod positioning and no use of accessory muscles. Cardiovascular: Regular rate and rhythm. Normal S1 and S2 Skin: No rashes or lesions noted Neuro: Patient oriented x3 Extremities: Normal to inspection and Yes no clubbing, cyanosis or edema PFSH Medical History (Updated 10/12/24 @ 14:28 by Nora Valladares PA-C) Physical exam Hx of cataract Anxiety Hyperlipidemia associated with type 2 diabetes mellitus History of osteoporosis Vitamin D deficiency Type 2 diabetes mellitus with hyperglycemia, with long-term current use of insulin Elevated parathyroid hormone Hyperlipidemia Surgical History History of breast biopsy History of cholecystectomy Family History Father Pancreatic cancer Mother Stomach cancer Brother Alcoholism Son Diabetes Daughter Diabetes Mother Diabetes Social History Housing: House Alcohol intake: current Alcohol intake frequency: a few times a month Patient Tobacco Use Status: Never used Tobacco Tobacco use type: Cigarette e-Cigarette/Vaping Use: Never Used Second Hand Smoke Exposure: No service: No Current occupational status: retired Cognitive needs: No Hearing needs: No Vision needs: Yes Review of Systems Const All systems reviewed & are unremarkable except as noted in HPI and below Physical Exam Vital Signs: Last Vital Signs Temp 97.6 F 10/12/24 14:04 Pulse 101 H 10/12/24 14:04 BP 130/80 10/12/24 14:04 Pulse Ox 96 10/12/24 14:04 Oxygen Delivery Method Room Air 10/12/24 14:04 Assessment & Plan Assessment & Plan (1) Lower respiratory infection (e.g., bronchitis, pneumonia, pneumonitis, pulmonitis): Code(s): J22 - Unspecified acute lower respiratory infection Plan: VSS, pt well appearing and PE remarkable for concerning lung sounds. Our management plan includes continued close monitoring of the patient's uncontrolled asthma symptoms with advised use of albuterol inhaler and nebulizer every four to six hours. We are investigating for a viral upper respiratory infection through a viral swab, as some viral infections may last several weeks and can be more severe. Further evaluation includes a chest x-ray to check for signs of pneumonia. The Solumedrol Dosepak will be provided to potentially re duce inflammation, recommending doses be taken in the morning to minimize sleep disturbances. Additionally, we will closely observe for any signs that may require antibiotic substitution to Augmentin if bacterial pneumonia is confirmed via imaging. Ongoing care will include adjusting medication usage as needed based on symptoms, close monitoring, and follow-up on test results to adapt the treatment plan as required. The patient has been informed on all steps and required actions. Patient was informed and verbally consented to the use of an ambient scribe for clinic note documentation during this visit Orders: Orders Resp Pathogen Panel - [facility] Today J06.9 - Acute upper respiratory infection, unspecified XR chest 2V Today R05.9 - Cough, unspecified Medications: New methylprednisolone orally per package directions; PO PER PKG DIR for 6 days 21 ea 0RF Coding Level of Care Code Est Pt Level 4 (25443) Diagnoses Lower respiratory infection (e.g., bronchitis, pneumonia, pneumonitis, pulmonitis) J22
[2024-10-12 14:04] VITALS: BP 130/80; PULSE 99; TEMP 36.4; O2SAT 96
== END 2024-10-12 14:32 | disposition home or self-care (01) ==
PROVIDERS: PCP Internal Medicine; Visit Provider Physician Assistant
DX: J22 Unspecified acute lower respiratory infection (principal)

== ENCOUNTER 2024-10-12 13:15 | Outpatient (REF) | payer MEDICARE, SELFPAY ==
--- NOTE | ~2024-10-12 | XR_ITS ---
EXAMINATION: XR CHEST CLINICAL INFORMATION: R05.9 - Cough, unspecified COMPARISON: None available. TECHNIQUE: 2 views of the chest were obtained. FINDINGS: Pulmonary reticular pattern. No consolidation, pleural effusion or pneumothorax. Elevated right hemidiaphragm which could be positional and or secondary to S-shaped curvature of the thoracolumbar spine. Cardiomediastinal silhouette size is normal. Osteopenia versus osteoporosis. Degenerative changes in the glenohumeral joints, right greater than the left side. Vascular clips right upper quadrant abdomen. XR/XR chest 2V IMPRESSION: Chronic interstitial lung disease. Rotoscoliosis, thoracolumbar spine with a levoconvex morphology. Degenerative changes, right and the left shoulder. Electronically signed by: Everton Yap MD 10/12/2024 02:45 PM EDT
[2024-10-13 08:53] LABS: Adenovirus PCR Not Detected (Not Detect.); Bordetella parapertussis PCR Not Detected (Not Detect.); Bordetella pertussis PCR Not Detected (Not Detect.); Chlamydia pneumoniae PCR Not Detected (Not Detect.); Coronavirus 229E PCR Not Detected (Not Detect.); Coronavirus HKU1 PCR Not Detected (Not Detect.); Coronavirus NL63 PCR Not Detected (Not Detect.); Coronavirus OC43 PCR Not Detected (Not Detect.); Human metapneumovirus PCR Not Detected (Not Detect.); Influenza A PCR Not Detected (Not Detect.); Influenza B PCR Not Detected (Not Detect.); Mycoplasma pneumoniae PCR Not Detected (Not Detect.); Parainfluenza 1 PCR Not Detected (Not Detect.); Parainfluenza 2 PCR Not Detected (Not Detect.); Parainfluenza 3 PCR Not Detected (Not Detect.); Parainfluenza 4 PCR Not Detected (Not Detect.); RSV PCR Not Detected (Not Detect.); Rhino/Enterovirus PCR Not Detected (Not Detect.)
[2024-10-13 08:57] LABS: Influenza A H1 PCR Not Detected (Not Detect.); Influenza A H1-2009 PCR Not Detected (Not Detect.); Influenza A H3 PCR Not Detected (Not Detect.); SARS-CoV-2 PCR Not Detected (Not Detect.)
== END 2024-10-12 13:16 | disposition home or self-care (01) ==
LOC: HO.HMGCX 13:15
PROVIDERS: PCP Internal Medicine; Visit Provider Physician Assistant
DX: R05.9 Cough, unspecified (principal); J06.9 Acute upper respiratory infection, unspecified
CPT/HCPCS: 71046; 87633; 99212

== ENCOUNTER → 2024-10-12 14:32 | Outpatient (BNV) | payer MEDICARE, SELFPAY | PROVIDERS: PCP Internal Medicine; Visit Provider Radiology Diagnostic Radiology | DX: J84.9 Interstitial pulmonary disease, unspecified (principal) | CPT/HCPCS: 71046 ==

== ENCOUNTER 2024-12-14 12:17 | Outpatient (AMB) | payer MEDICARE, SELFPAY ==
[2024-12-14 12:43] VITALS: BP 126/84; PULSE 96; O2SAT 96; BMI 26.9
--- NOTE | 2024-12-14 12:43 | MHC.PC.OV ---
Vital Signs 12/14/24 12:43 Height 5 ft 0.5 in Weight 140 lb BMI 26.9 BP 126/84 Blood Pressure Location Lt brachial Position Sitting Pulse 96 Pulse Source Pulse Oximeter Pulse Oximetry (%) 96 Oxygen Delivery Method Room Air Intake Visit Reasons: ANTONIA DUARTE- YAHAIRA see comments Rent Control Office Manager Required: No Accompanied by: Self / Same As Patient Allergies Doxycycline Hyclate Allergy (Unknown, Verified 12/14/24 12:51) Rash Medication List - Last Reconciled 12/14/24 by Gabrielle Goss MD acetaminophen ER 500 mg PO Q12H amoxicillin-pot clavulanate 875-125 mg 1 tab PO Q12H atorvastatin 40 mg PO BEDTIME azithromycin 250 mg PO DIRECTED benzonatate 200 mg PO BID-TID blood sugar diagnostic As directed blood sugar diagnostic (FreeStyle Lite Strips) test blood sugar twice a day cholecalciferol (vitamin D3) 25 mcg PO DAILY glipizide 5 mg PO BID insulin glargine U-300 conc (Toujeo SoloStar U-300 Insulin) 12 units (0.04 mL) subcut DAILY ketorolac 0.5% 0 drps ophthalmic (eye) lancets As directed lorazepam 0.5 mg PO BID PRN methylprednisolone orally per package directions; PO PER PKG DIR for 6 days pen needle, diabetic As directed prednisone 20 mg PO BID Tobacco use date assessed: 12/14/24 Fall risk assessment: No Falls in past year Last assessed Fall Risk: 12/14/24 Dental Screening Dental Screen Date: 12/14/24 Did you have a dental visit in the last 12 months?: Yes Did you have a dental problem in the last 6 months where you did not have access to dental care?: No Was dental information given to patient?: Patient has dentist HPI HPI Comments History of Present Illness Details The patient is an 79-year-old female presenting for a physical exam and management of chronic conditions. Complains of suprapubic pain and polyuria that started few days ago. Urinalysis was done showing UTI and urine will be sent for culture. The patient has a history of diabetes mellitus, currently managed with atorvastatin, glipizide, and insulin (Togeo). Her hemoglobin A1c was noted to be elevated at 9.3%, prompting consideration for an increase in insulin dosage from 14 to 16 units. She reports a history of diabetic retinopathy, specifically affecting the right eye, and has undergone cataract surgery on both eyes. The patient has a history of hypertension, managed with atorvastatin. She experiences anxiety and depression, for which she uses lorazepam as needed. She has suffered significant personal losses, including the deaths of her , son, grandson, and sister, contributing to her depressive symptoms. The patient has a longstanding heart murmur and scoliosis, neither of which have been previously evaluated with an echocardiogram. She declines having an echocardiogram. She has a history of osteoporosis, previously treated with medication, but discontinued due to dental concerns. She refused to do a DEXA scan. Her surgical history includes gallbladder removal and a right breast biopsy. Family history is significant for cancer, with her father having of pancreatic cancer and her mother of stomach cancer. Preventative care discussions included the need for pneumonia and tetanus vaccinations, as well as her regular flu vaccination. She refused tetanus and pneumonia vaccine. [facility] Medical History (Updated 12/14/24 @ 13:39 by Gabrielle Goss MD) Physical exam Hx of cataract Anxiety Hyperlipidemia associated with type 2 diabetes mellitus History of osteoporosis Vitamin D deficiency Type 2 diabetes mellitus with hyperglycemia, with long-term current use of insulin Elevated parathyroid hormone Hyperlipidemia Surgical History History of breast biopsy History of cholecystectomy Family History Father Pancreatic cancer Mother Stomach cancer Brother Alcoholism Son Diabetes Daughter Diabetes Mother Diabetes Social History Housing: House Alcohol intake: current Alcohol intake frequency: a few times a month Patient Tobacco Use Status: Never used Tobacco Tobacco use type: Cigarette e-Cigarette/Vaping Use: Never Used Second Hand Smoke Exposure: No service: No Current occupational status: retired Cognitive needs: No Hearing needs: No Vision needs: Yes Questionnaire PHQ-9 Over the last 2 weeks, how often have you been bothered by any of the following problems? 1. Little interest or pleasure in doing things: not at all 2. Feeling down, depressed, or hopeless: several days 3. Trouble falling or staying asleep, or sleeping too much: more than half the days 4. Feeling tired or having little energy: more than half the days 5. Poor appetite or overeating: more than half the days 6. Feeling bad about yourself - or that you are a failure or have let yourself or your family down: more than half the days 7. Trouble concentrating on things, such as reading the newspaper or watching television: more than half the days 8. Moving or speaking so slowly that other people could have noticed. Or the opposite - being so fidgety or restless that you have been moving around a lot more than usual: more than half the days 9. Thoughts that you would be better off or of hurting yourself in some way: more than half the days Total score: 15 Depression Screening Interpretation: Positive (no suicidal thoughts) Depression Screening Follow-up: Existing condition, Follow-up Visit Requested and Declines treatment Depression Screening Done: Yes 63101 - PHQ-9 Billing: Yes Source: Developed by Drs. Edu Cannon, Radha Walton, Kofi Stanley and colleagues, with an educational george from [employer]. Thrive Questionnaire Date Thrive assessed: 12/14/24 I am a: Patient What is your living situation today?: I have a steady place to live Within the past 12 months, did the food you bought not last and you didn't have the money to get more?: Never true Within the past 12 months, did you worry whether your food would run out before you got money to buy more?: Never true Do you have trouble paying for medicines?: I choose not to answer this question Do you have trouble getting transportation to medical appointments?: I choose not to answer this question Do you have trouble paying your heating and electricity bill?: I choose not to answer this question Do you have trouble taking care of your child, family member or friend?: I choose not to answer this question Do you have trouble with day-to-day activities such as bathing, preparing meals, shopping, managing finances, etc.?: I choose not to answer this question Are you currently unemployed and looking for a job?: I choose not to answer this question Are you interested in more education?: No Please select the resources that you would like help with: None Currently or been in a relationship where the following occur: I choose not to answer THRIVE Score: 0 AUDIT C Alcohol Use Questionnaire (AUDIT-C) 1. How often do you have a drink containing alcohol?: Never 3. How often do you have six or more drinks on one occasion?: Never Total Score: 0 Score Reviewed/Action Taken: No LURDES-7 AMB Questionnaire LURDES-7 Date LURDES - 7 assessed: 12/14/24 Feeling nervous, anxious, or on edge: 0 = Not at all Not being able to stop or control worryin = Not at all Worrying too much about different things: 0 = Not at all Trouble relaxin = More than half the days Being so restless that it is hard to sit still: 2 = More than half the days Becoming easily annoyed or irritable: 2 = More than half the days Feeling afraid as if something awful might happen: 2 = More than half the days Total LURDES-7 score (0-4 normal; 5-9 mild; 10-14 moderate; 15-21 severe): 8 Source: Developed by Drs. Edu Cannon, Radha Walton, Kofi Stanley and colleagues, with an educational george from [employer]. LURDES-7 Assessment Billing LURDES-7 Assessment Tool: LURDES-7 Assessment 99183 Review of Systems Const All systems reviewed & are unremarkable except as noted in HPI and below Card Denies chest pain at rest, Denies chest pain with activity, Denies edema, Denies irregular heart rhythm, Denies claudication, Denies dyspnea, Denies dyspnea on exertion, Denies orthopnea, Denies paroxysmal nocturnal dyspnea and Denies slow heart rate Resp Denies cough, Denies dyspnea and Denies dyspnea on exertion GI Denies abdominal pain, Denies change in bowel habits, Denies excessive flatus, Denies nausea and Denies vomiting Denies urinary incontinence, Denies urinary hesitancy and Denies urinary urgency Musc Denies abnormal gait, Denies atrophy, Denies deformity and Denies limited range of motion Skin/Breast Denies bleeding lesions, Denies changing lesions and Denies rash Neuro Denies abnormal gait and Denies lack of coordination Physical exam (Primary Care) Vital Signs: Last Vital Signs Pulse 96 12/14/24 12:43 BP 126/84 12/14/24 12:43 Pulse Ox 96 12/14/24 12:43 Oxygen Delivery Method Room Air 12/14/24 12:43 BMI result Body Mass Index 26.9 Tobacco/Smoking Status: Tobacco use Status Tobacco use date assessed 12/14/24 12/14/24 12:45 Patient Tobacco Use Status Never used Tobacco 12/14/24 12:45 Tobacco use type Cigarette 12/14/24 12:45 e-Cigarette/Vaping Use Never Used 12/14/24 12:45 PHQ-9: PHQ-9 Score PHQ-9: Total score 15 12/14/24 13:03 Depression Screening Interpretation: Positive (no suicidal thoughts) Depression Screening Follow-up: Existing condition, Follow-up Visit Requested and Declines treatment Thrive Assessment: Date of Thrive Assessment Date Thrive assessed 12/14/24 12/14/24 12:45 Currently or been in a relationship where the following occur: I choose not to answer Resp Effort & Inspection: normal respiratory effort Auscultation: clear to auscultation bilaterally Cardio Jugular venous distension: no JVD Rate: regular rate Rhythm: regular rhythm Heart sounds: Murmur heart sound present systolic Extrem General: Yes full ROM Results AMB Hemoglobin A1c AMB Hemoglobin A1c 9.3 % Last Edit by Paul Santos [facility] on 12/14/24 13:02 AMB Urinalysis, Automated UA Leukoctes 1 Andrea/uL Last Edit by Paul Santos [facility] on 12/14/24 13:23 UA Nitrite Negative Last Edit by Paul Santos [facility] on 12/14/24 13:23 UA Urobilinogen 0 mg/dL Last Edit by Paul Santos [facility] on 12/14/24 13:23 UA Protein 0 mg/dL Last Edit by Paul Santos [facility] on 12/14/24 13:23 UA pH 6.0 Last Edit by Paul Santos [facility] on 12/14/24 13:23 UA Blood 1 Yehuda/uL Last Edit by Paul Santos [facility] on 12/14/24 13:23 UA Specific [place] 1.025 Last Edit by Paul Santos [facility] on 12/14/24 13:23 UA Ketone Negative Last Edit by Paul Santos [facility] on 12/14/24 13:23 UA Bilirubin 0 mg/dL Last Edit by Paul Santos [facility] on 12/14/24 13:23 UA Glucose 0 mg/dL Last Edit by VÍCTOR Rod on 12/14/24 13:23 Results Reviewed Results Reviewed: Laboratory Last Values Hgb A1c (Clinic) 9.3 % (4.0-6.0) H 12/14/24 13:02 Coding Level of Care Code Est Pt Level 4 (00206) Est Pt Prev Care >65y(99941) Diagnoses Physical exam Z00.00 Type 2 diabetes mellitus with hyperglycemia, with long-term current use of insulin E11.65; Z79.4 Diabetic retinopathy E11.319 Macular edema H35.81 Moderate recurrent major depression F33.1 Hyperlipidemia associated with type 2 diabetes mellitus E11.69; E78.5 UTI (urinary tract infection) N39.0 Additional Codes LURDES-7 Assessment Billing - LURDES-7 Assessment Tool: LURDES-7 Assessment 73947 ([id number]) PHQ-9 - 58384 - PHQ-9 Billing: Yes ([id number]) Time Spent (min) 36 Assessment & Plan Assessment & Plan (1) Physical exam: Code(s): Z00.00 - Encounter for general adult medical examination without abnormal findings Category: Medical (2) Type 2 diabetes mellitus with hyperglycemia, with long-term current use of insulin: Code(s): E11.65 - Type 2 diabetes mellitus with hyperglycemia; Z79.4 - buttermaker continuous churn (current) use of insulin Category: Medical (3) Diabetic retinopathy: Code(s): E11.319 - Type 2 diabetes mellitus with unspecified diabetic retinopathy without macular edema Category: Medical (4) Macular edema: Code(s): H35.81 - Retinal edema Category: Medical (5) Moderate recurrent major depression: Code(s): F33.1 - Major depressive disorder, recurrent, moderate Category: Medical (6) Hyperlipidemia associated with type 2 diabetes mellitus: Code(s): E11.69 - Type 2 diabetes mellitus with other specified complication; E78.5 - Hyperlipidemia, unspecified Category: Medical (7) UTI (urinary tract infection): Code(s): N39.0 - Urinary tract infection, site not specified Category: Medical Plan The patient's diabetes management will be adjusted by increasing the insulin dosage from 14 to 16 units due to the elevated hemoglobin A1c of 9.3%. For her heart murmur, an echocardiogram is recommended to assess the severity and underlying cause, given the absence of prior imaging. Preventative care measures include discussions about receiving the pneumonia and tetanus vaccines, as well as ensuring regular flu vaccinations. The patient is advised to continue using lorazepam as needed for anxiety and depression, with consideration for counseling if symptoms persist. A urinalysis is planned to investigate symptoms of dysuria and urinary frequency, with treatment to follow based on results. Patient was informed and verbally consented to the use of an ambient scribe for clinic note documentation during this visit. Orders: Orders AMB Hemoglobin A1c Today E78.5 - Hyperlipidemia, unspecified Lipid Panel 4 Months E78.5 - Hyperlipidemia, unspecified Vitamin D 25-OH Total 4 Months E55.9 - Vitamin D deficiency, unspecified Comprehensive [place]. Panel Fast 4 Months E11.69 - Type 2 diabetes mellitus with other specified complication, E78.5 - Hyperlipidemia, unspecified Urine Culture Today N39.0 - Urinary tract infection, site not specified Microalbumin, Random (w Creat) 4 Months R80.9 - Proteinuria, unspecified AMB Urinalysis Automated Today N39.0 - Urinary tract infection, site not specified Medications: New nitrofurantoin macrocrystal must administer with a meal/food 100 mg PO BID 10 caps 0RF 5 days Changed From insulin glargine U-300 conc (Toujeo SoloStar U-300 Insulin) 12 units (0.04 mL) subcut DAILY 4.5 mL 8RF E11.65 - Type 2 diabetes mellitus with hyperglycemia, Z79.4 - buttermaker continuous churn (current) use of insulin To insulin glargine U-300 conc (Toujeo SoloStar U-300 Insulin) 16 units (0.0533 mL) subcut DAILY 4.797 mL 3RF 90 days E11.65 - Type 2 diabetes mellitus with hyperglycemia, Z79.4 - FDC (current) use of insulin
== END 2024-12-14 13:17 | disposition home or self-care (01) ==
LOC: HO.HMCH 12:18
PROVIDERS: PCP Internal Medicine; Visit Provider Internal Medicine
DX: Z00.00 Encounter for general adult medical examination without abnormal findings (principal); E11.65 Type 2 diabetes mellitus with hyperglycemia; Z79.4 Long term (current) use of insulin; E11.319 Type 2 diabetes mellitus with unspecified diabetic retinopathy without macular edema; F33.1 Major depressive disorder, recurrent, moderate; E11.69 Type 2 diabetes mellitus with other specified complication; H35.81 Retinal edema; E78.5 Hyperlipidemia, unspecified; N39.0 Urinary tract infection, site not specified

== ENCOUNTER 2024-12-14 12:17 | Outpatient (REF) | payer MEDICARE, SELFPAY | END 2024-12-14 12:18 | disposition home or self-care (01) | LOC: HO.LAB 12:17 | PROVIDERS: PCP Internal Medicine; Visit Provider Internal Medicine | DX: Z00.00 Encounter for general adult medical examination without abnormal findings (principal); E11.65 Type 2 diabetes mellitus with hyperglycemia; E11.319 Type 2 diabetes mellitus with unspecified diabetic retinopathy without macular edema; H35.81 Retinal edema; F33.1 Major depressive disorder, recurrent, moderate; E11.69 Type 2 diabetes mellitus with other specified complication; E78.5 Hyperlipidemia, unspecified; N39.0 Urinary tract infection, site not specified; Z79.4 Long term (current) use of insulin | CPT/HCPCS: 81003; 83036; 87086; 87088; 87186; 96127; 99212; 99397 ==

== ENCOUNTER 2025-04-19 08:49 | Outpatient (REF) | payer MEDICARE, SELFPAY ==
[2025-04-19 10:18] LABS: Alanine Aminotransferase 32 U/L (0-31); Albumin Level 4.3 g/dL (3.5-5.0); Alkaline Phosphatase 83 U/L (39-117); Anion Gap 11 (12-20); Aspartate Amino Transferase 42 U/L (5-31); Blood Urea Nitrogen 9 mg/dL (9-16); Calcium 9.8 mg/dL (8.4-10.2); Carbon Dioxide 28 mmol/L (22-29); Chloride 109 mmol/L (96-108); Cholesterol 155 mg/dL (<200); Estimated Glomerular Filt Rate > 60; HDL Cholesterol 71 mg/dL (>40); Potassium 3.5 mmol/L (3.3-5.1); Sodium 144 mmol/L (135-145); Total Protein 7.6 g/dL (6.5-8.0); Triglycerides 94 mg/dL (<150)
[2025-04-19 11:11] LABS: Microalbum/Creatinine Ratio Ur 8.8 ug/mg cr (<30)
== END 2025-04-19 08:50 | disposition home or self-care (01) ==
LOC: HO.LAB 08:49
PROVIDERS: PCP Internal Medicine; Visit Provider Internal Medicine
DX: E11.69 Type 2 diabetes mellitus with other specified complication (principal); E55.9 Vitamin D deficiency, unspecified; E78.5 Hyperlipidemia, unspecified; R80.9 Proteinuria, unspecified
CPT/HCPCS: 36415; 80053; 80061; 82043; 82306; 82570

== ENCOUNTER 2025-04-26 10:40 | Outpatient (AMB) | payer MEDICARE, SELFPAY ==
--- NOTE | 2025-04-26 10:46 | A.OFFPC_ITS ---
Vital Signs 04/26/25 10:47 Height 5 ft 0.5 in Weight 141 lb 6 oz BMI 27.2 BP 176/82 H Blood Pressure Location Lt brachial Position Sitting Respiration 18 Pulse 82 Pulse Source Pulse Oximeter Temp Source Temporal Artery Scan Pulse Oximetry (%) 98 Oxygen Delivery Method Room Air Intake Visit Reasons: dm Kindergarten Instructional Assistant Required: No Accompanied by: Self / Same As Patient Allergies Doxycycline Hyclate Allergy (Unknown, Verified 04/26/25 11:08) Rash Medication List - Last Reconciled 04/26/25 by Gabrielle Goss MD acetaminophen ER 500 mg PO Q12H atorvastatin 40 mg PO BEDTIME blood sugar diagnostic As directed blood sugar diagnostic (FreeStyle Lite Strips) test blood sugar twice a day cholecalciferol (vitamin D3) 25 mcg PO DAILY glipizide 5 mg PO BID insulin glargine U-300 conc (Toujeo SoloStar U-300 Insulin) 16 units (0.0533 mL) subcut DAILY 90 days lancets As directed lorazepam 0.5 mg PO BID PRN pen needle, diabetic As directed Tobacco use date assessed: 04/26/25 Fall risk assessment: No Falls in past year Last assessed Fall Risk: 04/26/25 Dental Screening Dental Screen Date: 04/26/25 Did you have a dental visit in the last 12 months?: No Did you have a dental problem in the last 6 months where you did not have access to dental care?: No Was dental information given to patient?: No HPI HPI Comments History of Present Illness Details The patient is an 79 year old individual presenting for follow-up of chronic conditions and evaluation of new respiratory symptoms. The blood pressure was elevated today, which the patient attributes to rushing. The patient has a history of type 2 diabetes mellitus for quite a while, managed with glipizide and Toujeo 16 units daily. The hemoglobin A1c has improved to 8.4% from a previous value of 9.3%, and a recent fasting blood glucose was 91 mg/dL, down from 162 mg/dL. Recent labs showed good kidney function. For hypercholesterolemia, the patient takes atorvastatin 40 mg, and recent cholesterol levels were noted to be excellent. There is a history of very mildly elevated liver enzymes, which may be related to the atorvastatin. The patient reports a recent onset of a productive, full cough and a sensation of head fullness, raising concern for an upper respiratory infection. The patient denies fever or sinus pain. [facility] Medical History Physical exam Hx of cataract Anxiety Hyperlipidemia associated with type 2 diabetes mellitus History of osteoporosis Vitamin D deficiency Type 2 diabetes mellitus with hyperglycemia, with long-term current use of insulin Elevated parathyroid hormone Hyperlipidemia Surgical History History of breast biopsy History of cholecystectomy Family History Father Pancreatic cancer Mother Stomach cancer Brother Alcoholism Son Diabetes Daughter Diabetes Mother Diabetes Social History Housing: House Alcohol intake: current Alcohol intake frequency: a few times a month Patient Tobacco Use Status: Never used Tobacco Tobacco use type: Cigarette e-Cigarette/Vaping Use: Never Used Second Hand Smoke Exposure: No service: No Current occupational status: retired Cognitive needs: No Hearing needs: No Vision needs: Yes Questionnaire Thrive Questionnaire Date Thrive assessed: 05/12/24 I am a: Patient What is your living situation today?: I have a steady place to live Within the past 12 months, did the food you bought not last and you didn't have the money to get more?: Never true Within the past 12 months, did you worry whether your food would run out before you got money to buy more?: Never true Do you have trouble paying for medicines?: I choose not to answer this question Do you have trouble getting transportation to medical appointments?: I choose not to answer this question Do you have trouble paying your heating and electricity bill?: I choose not to answer this question Do you have trouble taking care of your child, family member or friend?: I choose not to answer this question Do you have trouble with day-to-day activities such as bathing, preparing meals, shopping, managing finances, etc.?: I choose not to answer this question Are you currently unemployed and looking for a job?: I choose not to answer this question Are you interested in more education?: No Please select the resources that you would like help with: None Currently or been in a relationship where the following occur: I choose not to answer THRIVE Score: 0 LURDES-7 AMB Questionnaire LURDES-7 Date LURDES - 7 assessed: 12/14/24 Source: Developed by Drs. Edu Cannon, Radha Walton, Kofi Stanley and colleagues, with an educational george from [employer]. Review of Systems Const All systems reviewed & are unremarkable except as noted in HPI and below Card Denies chest pain at rest, Denies chest pain with activity, Denies edema, Denies irregular heart rhythm, Denies claudication, Denies dyspnea, Denies dyspnea on exertion, Denies orthopnea, Denies paroxysmal nocturnal dyspnea and Denies slow heart rate Resp Denies cough, Denies dyspnea and Denies dyspnea on exertion GI Denies abdominal pain, Denies change in bowel habits, Denies excessive flatus, Denies nausea and Denies vomiting Physical exam (Primary Care) Vital Signs: Last Vital Signs Pulse 82 04/26/25 10:47 Resp 18 04/26/25 10:47 BP 176/82 H 04/26/25 10:47 Pulse Ox 98 04/26/25 10:47 Oxygen Delivery Method Room Air 04/26/25 10:47 BMI result Body Mass Index 27.2 Tobacco/Smoking Status: Tobacco use Status Tobacco use date assessed 04/26/25 04/26/25 11:04 Patient Tobacco Use Status Never used Tobacco 04/26/25 11:04 Tobacco use type Cigarette 04/26/25 11:04 e-Cigarette/Vaping Use Never Used 04/26/25 11:04 Thrive Assessment: Date of Thrive Assessment Date Thrive assessed 05/12/24 04/26/25 11:04 Currently or been in a relationship where the following occur: I choose not to answer Resp Effort & Inspection: normal respiratory effort Auscultation: clear to auscultation bilaterally Cardio Jugular venous distension: no JVD Rate: regular rate Rhythm: regular rhythm Heart sounds: S1 normal heart sound present and S2 normal heart sound present Extrem General: Yes full ROM Coding Level of Care Code Complex visit Add On G2211 Diagnoses Hyperlipidemia associated with type 2 diabetes mellitus E11.69; E78.5 Type 2 diabetes mellitus with hyperglycemia, with long-term current use of insulin E11.65; Z79.4 Cough R05.9 Elevated LFTs R79.89 Time Spent (min) 21 Assessment & Plan Assessment & Plan (1) Hyperlipidemia associated with type 2 diabetes mellitus: Code(s): E11.69 - Type 2 diabetes mellitus with other specified complication; E78.5 - Hyperlipidemia, unspecified Category: Medical (2) Type 2 diabetes mellitus with hyperglycemia, with long-term current use of insulin: Code(s): E11.65 - Type 2 diabetes mellitus with hyperglycemia; Z79.4 - detention (current) use of insulin Category: Medical (3) Cough: Code(s): R05.9 - Cough, unspecified Category: Medical (4) Elevated LFTs: Code(s): R79.89 - Other specified abnormal findings of blood chemistry Category: Medical Plan Plan 1. Elevated Blood Pressure The patient's blood pressure was elevated in the office, which may be situational due to rushing and recent coffee intake. A follow-up visit in three weeks is scheduled for a blood pressure recheck. The patient was advised to drink only water and avoid coffee before the next check. Since the patient's home blood pressure cuff is not working, a prescription for a new one will be sent to the pharmacy. 2. Type 2 Diabetes Mellitus Without Complications The patient shows improvement in glycemic control, with A1c decreasing from 9.3% to 8.4%. Current medications, including glipizide and Toujeo 16 units, will be continued without change. A repeat of all lab work is planned in six months to continue monitoring. 3. Hypercholesterolemia The patient's cholesterol is well-controlled with atorvastatin 40 mg, and liver enzymes are only mildly elevated. The benefits of the current cholesterol management are considered to outweigh the risks associated with the mild liver enzyme elevation. The plan is to continue the current dosage of atorvastatin and recheck labs in six months. 4. Acute Upper Respiratory Infection The patient presents with a productive cough and head fullness, consistent with an upper respiratory infection. Physical exam findings are benign, with clear lungs and no significant findings in the oropharynx. A course of antibiotics will be prescribed and sent to the pharmacy. Orders: Orders Lipid Panel 6 Months E78.5 - Hyperlipidemia, unspecified Microalbumin, Random (w Creat) 6 Months R80.9 - Proteinuria, unspecified Complete Blood Count Auto Diff 6 Months D64.9 - Anemia, unspecified Comprehensive [place]. Panel Fast 6 Months E11.69 - Type 2 diabetes mellitus with other specified complication, E78.5 - Hyperlipidemia, unspecified AMB Hemoglobin A1c Today Z13.9 - Encounter for screening, unspecified IRON PROFILE 6 Months D64.9 - Anemia, unspecified Vitamin D 25-OH Total 6 Months E55.9 - Vitamin D deficiency, unspecified Medications: New amoxicillin-pot clavulanate 875-125 mg 1 tab PO BID 14 tabs 0RF 7 days
[2025-04-26 10:47] VITALS: BP 176/82; PULSE 82; RESP 18; O2SAT 98; BMI 27.2
== END 2025-04-26 11:19 | disposition home or self-care (01) ==
LOC: HO.HMCH 10:41
PROVIDERS: PCP Internal Medicine; Visit Provider Internal Medicine
DX: E11.69 Type 2 diabetes mellitus with other specified complication (principal); E11.65 Type 2 diabetes mellitus with hyperglycemia; Z79.4 Long term (current) use of insulin; E78.5 Hyperlipidemia, unspecified; R05.9 Cough, unspecified; R79.89 Other specified abnormal findings of blood chemistry

== ENCOUNTER → 2025-04-26 10:40 | Outpatient (BNVA) | payer MEDICARE, SELFPAY | PROVIDERS: PCP Internal Medicine; Visit Provider Internal Medicine | DX: E11.65 Type 2 diabetes mellitus with hyperglycemia (principal); E11.69 Type 2 diabetes mellitus with other specified complication; E78.00 Pure hypercholesterolemia, unspecified; R05.9 Cough, unspecified; R79.89 Other specified abnormal findings of blood chemistry; R03.0 Elevated blood-pressure reading, without diagnosis of hypertension; J06.9 Acute upper respiratory infection, unspecified; Z79.4 Long term (current) use of insulin; Z79.899 Other long term (current) drug therapy | CPT/HCPCS: 99212 ==

== ENCOUNTER → 2025-05-13 11:33 | Outpatient (BNVA) | payer MEDICARE, SELFPAY | PROVIDERS: PCP Internal Medicine | DX: Z01.30 Encounter for examination of blood pressure without abnormal findings (principal) | CPT/HCPCS: 99211 ==